=== PATIENT | female | born 1960 | race Caucasian/White ===

== ENCOUNTER 2021-06-08 06:53 | Day surgery (SDC) | payer OTHER ==
[~2021-06-08] VITALS: Ht 149.9 cm; Wt 54.5 kg
[~2021-06-08 06:53] MED LIST: CYCLOPENTOLATE HCL 1% 2 ML OPHTHALMIC SOLUTION ONE; KETOROLAC TROMETHAMINE 0.5% 5 ML OPHTHALMIC SOLUTION ONE; MOXIFLOXACIN HCL 0.5% 3 ML OPHTHALMIC SOLUTION ONE; PHENYLEPHRINE HCL 2.5% 2 ML OPHTHALMIC SOLUTION ONE; RINGERS SOLUTION,LACTATED 500 ML IV ONE; TETRACAINE HCL/PF 0.5% 4 ML OPHTHALMIC SOLUTION ONE; TROPICAMIDE 1% 2 ML OPHTHALMIC SOLUTION ONE
[2021-06-08] MEDS ORDERED: HYALURONATE SOD/CHONDROITIN SOD 0.5 ML VIAL IO ONE (06:54)
[2021-06-08] MEDS ORDERED: MIDAZOLAM HCL 2 MG/2 ML VIAL IVP ONE (06:54)
[2021-06-08] MEDS ORDERED: PrednisoLONE ACETATE 1% 5 ML OPHTHALMIC SUSPENSION AD ONE (06:54)
[2021-06-08] MEDS ORDERED: ONDANSETRON HCL 4 MG/2 ML VIAL IVP ONE (06:54)
[2021-06-08] MEDS ORDERED: LIDOCAINE/PF 2% 5 ML SYRINGE IVP ONE (06:54)
[2021-06-08] MEDS ORDERED: FentaNYL CITRATE PF 100 MCG/2 ML VIAL IVP ONE (06:54)
[2021-06-08] MEDS ORDERED: EPINEPHrine 1:1,000 [1 MG/ML] AMP ET ONE (06:54)
[2021-06-08] MEDS ORDERED: 0.9% SODIUM CHLORIDE 10 ML VIAL IVP ONE (06:54)
[2021-06-08] MEDS ORDERED: DEXAMETHASONE SOD PHOS 4 MG/ML VIAL IVP ONE (06:54)
[2021-06-08] MEDS ORDERED: PROPOFOL 1% 20 ML VIAL IVP ONE (06:54)
[2021-06-08] MEDS ORDERED: EPHEDrine SULFATE 50 MG/ML VIAL IM ONE (06:54)
[2021-06-08] MEDS ORDERED: NEOMYCIN/POLYMYXIN B/DEXAMETH 3.5 GM OPHTHALMIC OINTMENT OD ONE (06:54)
[2021-06-08] MEDS ORDERED: LIDOCAINE/PF 1% 2 ML VIAL CAUDAL ONE (06:54)
[2021-06-08] MEDS ORDERED: POVIDONE-IODINE 10% 15 ML SOLUTION UD TP ONE (06:54)
[2021-06-08 07:10] LABS: COVID AG,FIA SOURCE NASOPHARYNGEAL
[2021-06-08] MEDS: TROPICAMIDE 1% 2 ML OPHTHALMIC SOLUTION OD SCH ×3 (07:16→07:27)
[2021-06-08] MEDS: CYCLOPENTOLATE HCL 1% 2 ML OPHTHALMIC SOLUTION OD SCH ×3 (07:16→07:27)
[2021-06-08] MEDS: TETRACAINE HCL/PF 0.5% 4 ML OPHTHALMIC SOLUTION OD SCH ×3 (07:16→07:27)
[2021-06-08] MEDS: KETOROLAC TROMETHAMINE 0.5% 5 ML OPHTHALMIC SOLUTION OD SCH ×3 (07:16→07:27)
[2021-06-08] MEDS: MOXIFLOXACIN HCL 0.5% 3 ML OPHTHALMIC SOLUTION OD SCH ×3 (07:16→07:27)
[2021-06-08] MEDS: PHENYLEPHRINE HCL 2.5% 2 ML OPHTHALMIC SOLUTION OD SCH ×3 (07:16→07:27)
== END 2021-06-08 09:50 | disposition home or self-care (01) ==
LOC: SURGERY 06:53
PROVIDERS: ATTEND Ophthalmology
DX: H25.11 Age-related nuclear cataract, right eye (principal); E78.00 Pure hypercholesterolemia, unspecified; E03.9 Hypothyroidism, unspecified; Z91.018 Allergy to other foods; Z79.899 Other long term (current) drug therapy; Z98.890 Other specified postprocedural states; Z85.528 Personal history of other malignant neoplasm of kidney
CPT/HCPCS: 66984; 87426; 93005; C9803; J0171; J1100; J2250; J2405; J2704; J3010; J3490 ×3; J7120; V2632

== ENCOUNTER 2021-07-06 06:03 | Day surgery (SDC) | payer MEDICARE, MEDICAID ==
[~2021-07-06] VITALS: Ht 147.3 cm; Wt 56.4 kg
[2021-07-06] MEDS ORDERED: LIDOCAINE 1% 10 ML VIAL IM ONE (06:04)
[2021-07-06] MEDS ORDERED: MIDAZOLAM HCL 2 MG/2 ML VIAL IVP ONE (06:04)
[2021-07-06] MEDS ORDERED: ROCURONIUM BROMIDE 10 MG/ML 5 ML VIAL IVP ONE (06:04)
[2021-07-06] MEDS ORDERED: ONDANSETRON HCL 4 MG/2 ML VIAL IVP ONE (06:04)
[2021-07-06] MEDS ORDERED: PROPOFOL 1% 20 ML VIAL IVP ONE (06:04)
[2021-07-06] MEDS: MOXIFLOXACIN HCL 0.5% 3 ML OPHTHALMIC SOLUTION OS SCH ×3 (06:50→07:00)
[2021-07-06] MEDS: TROPICAMIDE 1% 2 ML OPHTHALMIC SOLUTION OS SCH ×3 (06:50→07:01)
[2021-07-06] MEDS: PHENYLEPHRINE HCL 2.5% 2 ML OPHTHALMIC SOLUTION OS SCH ×3 (06:50→07:01)
[2021-07-06] MEDS: CYCLOPENTOLATE HCL 1% 2 ML OPHTHALMIC SOLUTION OS SCH ×3 (06:50→07:01)
[2021-07-06] MEDS: TETRACAINE HCL/PF 0.5% 4 ML OPHTHALMIC SOLUTION OS SCH ×3 (06:51→07:01)
[2021-07-06] MEDS: KETOROLAC TROMETHAMINE 0.5% 5 ML OPHTHALMIC SOLUTION OS SCH ×3 (06:51→07:01)
[2021-07-06] MEDS ORDERED: LINA72CA PO (07:38)
[2021-07-06] MEDS ORDERED: LORA10TA7 PO (07:38)
[2021-07-06] MEDS ORDERED: MONT-35 PO (07:38)
[2021-07-06] MEDS ORDERED: BENZ0.5T44 PO (07:38)
[2021-07-06] MEDS ORDERED: CLON-592 PO (07:38)
[2021-07-06] MEDS ORDERED: TRAZ-257 PO (07:38)
[2021-07-06] MEDS ORDERED: ZIPR40CA2 PO (07:38)
[2021-07-06] MEDS ORDERED: CHOL-35 PO (07:38)
[2021-07-06] MEDS ORDERED: THYROXINE PO (07:38)
[2021-07-06] MEDS ORDERED: SUGAMMADEX SODIUM 200 MG/2 ML VIAL IVP ONE (08:04)
== END 2021-07-06 09:50 | disposition home or self-care (01) ==
LOC: SURGERY 06:03
PROVIDERS: ATTEND Ophthalmology
DX: H25.12 Age-related nuclear cataract, left eye (principal); E03.9 Hypothyroidism, unspecified; E78.00 Pure hypercholesterolemia, unspecified; Z98.890 Other specified postprocedural states; Z20.822 Contact with and (suspected) exposure to COVID-19; Z88.8 Allergy status to other drugs, medicaments and biological substances; Z90.5 Acquired absence of kidney
CPT/HCPCS: 66984; J2250; J2405; J2704; J3490 ×2; J7120; Q9967; V2632